=== PATIENT | male | born 1965 | race Caucasian/White ===

== ENCOUNTER 2021-03-12 23:32 | Emergency (ER) | payer BC, MEDICAID ==
[~2021-03-12] VITALS: Ht 177.8 cm; Wt 97.7 kg
[2021-03-13] MEDS ORDERED: epiNEPHrine 1 mg/ml inj IM STA
--- NOTE | 2021-03-13 00:01 | NUR ---
Upon intial assessment; pt is in mild respiratory distress with swelling noted to the left side of his mouth/tongue/jaw line; pt hx of anaphylaxis; MD immediately notified and orders placed for immediate intervention; pt has only taken 1 tablet of 25mg of benadryl at home [employer]; pt states he feels like his airway is tight but airway is currently patent; pt has mild reddening to his chest and shoulders as well; IV initiated due to hx/s-sx; pt denies taking any new meds, starting any new foods or detergents, etc; pt is ambulatory to room; AOx4; GCS 15; Lung watkins are clear and equal bilaterally; heart sounds WNL in a NSR; VSS at this time; placed on monitor and call light given; direct vision of nursing station at this time.
[2021-03-13] MEDS ORDERED: famotidine 20mg tablet PO ONE (00:05)
[2021-03-13] MEDS ORDERED: predniSONE 20 mg tablet PO ONE (00:05)
[2021-03-13] MEDS ORDERED: diphenhydrAMINE 25mg capsule PO ONE (00:05)
[2021-03-13] MEDS ORDERED: famotidine 10mg tablet PO SCH (00:05)
[2021-03-13 02:31] VITALS: BP 129/81
--- NOTE | 2021-03-13 02:34 | NUR ---
Upon discharge pt is aware of s/sx to watch for and to continue benadryl at home for 24hrs to prevent reoccurence; pt in NAD with VSS upon dc; IV removed intact; pt verbalized understanding of dc instructions
== END 2021-03-13 02:33 | disposition home or self-care (01) ==
LOC: ER 23:33
DX: T78.2XXA Anaphylactic shock, unspecified, initial encounter (principal); R13.10 Dysphagia, unspecified; L50.9 Urticaria, unspecified; Z88.6 Allergy status to analgesic agent; Z91.030 Bee allergy status; X58.XXXA Exposure to other specified factors, initial encounter; Y93.89 Activity, other specified; Y92.89 Other specified places as the place of occurrence of the external cause; Y99.8 Other external cause status
CPT/HCPCS: 96372; 99284; J0171; J7512; Q0163

== ENCOUNTER 2024-02-01 09:41 | Emergency (ER) | payer BC, MEDICAID ==
[~2024-02-01] VITALS: Ht 177.8 cm; Wt 113.5 kg
[2024-02-01 09:48] VITALS: TEMP 98.8
[2024-02-01 10:30] LABS: BASOPHILS # (AUTO) 0.1 X10'3 (0-0.2); EOSINOPHILS # (AUTO) 0.1 X10'3 (0-0.9); EOSINOPHILS % (AUTO) 0.7 % (0-6); HEMATOCRIT 40.1 % (42.0-52.0); HEMOGLOBIN 13.8 g/dl (14.0-17.9); LYMPHOCYTES # (AUTO) 1.6 X10'3 (1.1-4.8); LYMPHOCYTES % (AUTO) 19.1 % (21-51); MEAN CORPUSCULAR HEMOGLOBIN 32.6 PG (27.0-31.0); MEAN CORPUSCULAR HGB CONC 34.4 g/dL (33.0-36.5); MEAN CORPUSCULAR VOLUME 94.7 FL (78-98); MEAN PLATELET VOLUME 7.4 FL (7.4-10.4); MONOCYTES # (AUTO) 0.7 X10'3 (0-0.9); MONOCYTES % (AUTO) 8.6 % (2-12); NEUTROPHILS # (AUTO) 5.9 X10'3 (1.8-7.7); NEUTROPHILS % (AUTO) 70.6 % (42-75); PLATELET COUNT 217 X10'3 (140-440); RED BLOOD COUNT 4.23 X10'6 (4.70-6.10); RED CELL DISTRIBUTION WIDTH 13.2 % (11.5-14.5); WHITE BLOOD COUNT 8.3 X10'3 (4.5-11.0)
[2024-02-01 10:41] LABS: APTT 25 SECONDS (22-32); PROTHROMBIN TIME 10.9 SECONDS (9.0-12.0)
[2024-02-01 10:43] LABS: ALANINE AMINOTRANSFERASE 59 U/L (12-78); ALBUMIN 4.1 G/DL (3.4-5.0); ALBUMIN/GLOBULIN RATIO 1.1 (1.1-1.5); ALKALINE PHOSPHATASE 62 IU/L (46-116); AMYLASE 60 U/L (25-115); ANION GAP 12 (8-16); ASPARTATE AMINO TRANSFERASE 31 U/L (10-37); BILIRUBIN,TOTAL 0.5 MG/DL (0.1-1.0); BLOOD UREA NITROGEN 16 MG/DL (7-18); CHLORIDE 102 MMOL/L (99-107); CREATININE 1.14 MG/DL (0.60-1.10); GLUCOSE 134 MG/DL (70-104); LIPASE 48 U/L (16-77); POTASSIUM 3.5 MMOL/L (3.5-5.1); SODIUM 137 MMOL/L (135-145); TOTAL CARBON DIOXIDE 22.9 MMOL/L (24-32); TOTAL PROTEIN 7.9 G/DL (6.4-8.2); eCRCL 72 ML/MIN; eGFR 66 ML/MIN
[2024-02-01 11:25] LABS: BILIRUBIN,URINE NEGATIVE (Neg); CLARITY,URINE CLEAR (Clear); COLOR,URINE YELLOW (Yellow); GLUCOSE, URINE NEGATIVE (Neg); KETONES,URINE NEGATIVE (Neg); LEUKOCYTE ESTERASE ,URINE NEGATIVE (Neg); NITRITES, URINE NEGATIVE (Neg); OCCULT BLOOD,URINE NEGATIVE (Neg); PROTEIN,URINE NEGATIVE (Neg); UROBILINOGEN,URINE 0.2 E.U/dL (0.2-1.0)
[2024-02-01 11:31] LABS: UA COLLECTION TYPE CLN CATCH MIDSTREAM
[2024-02-01 12:15] VITALS: BP 123/78; PULSE 87; RESP 18; O2SAT 92
[2024-02-01 12:22] LABS: OCCULT BLOOD STOOL POSITIVE (Neg)
== END 2024-02-01 12:17 | disposition home or self-care (01) ==
LOC: ER 09:41
DX: K62.5 Hemorrhage of anus and rectum (principal); Z88.8 Allergy status to other drugs, medicaments and biological substances; Z91.018 Allergy to other foods; Z88.0 Allergy status to penicillin; Z91.030 Bee allergy status
CPT/HCPCS: 36415; 80053; 81003; 82150; 82272; 83690; 85025; 85610; 85730; 86885; 86900; 86901; 99283

== ENCOUNTER 2024-10-19 18:51 | Emergency (ER) | payer BC ==
[~2024-10-19] VITALS: Ht 177.8 cm; Wt 95.5 kg
[2024-10-19 18:55] VITALS: BP 101/72; PULSE 93; RESP 18; TEMP 98.6; O2SAT 98
== END 2024-10-19 21:28 | disposition home or self-care (01) ==
LOC: ER 18:51
DX: R55 Syncope and collapse (principal); Z88.0 Allergy status to penicillin; Z91.030 Bee allergy status; Z88.6 Allergy status to analgesic agent; Z88.8 Allergy status to other drugs, medicaments and biological substances
CPT/HCPCS: 93005; 99283